=== PATIENT | male | born 1985 | race Caucasian/White ===

== ENCOUNTER 2016-10-12 19:36 | Emergency (ER) | payer OTHER ==
[2016-10-12] MEDS ORDERED: NAPROXEN 250 MG TABLET PO ONE (21:29)
[2016-10-12] MEDS ORDERED: HYDROCODONE/ACETAMINOPHEN 5-325 MG TABLET PO ONE (21:29)
--- NOTE | 2016-10-12 21:37 | ER Document Report ---
ED Medical Screen (RME) - General Stated Complaint: BACK PAIN Mode of Arrival: Ambulatory Information source: Patient Notes: 30 y/o M presents to ED c/o lower back pain over the last 6 days. Reports was lifting toolbox in his garage when he felt a pulling pain to lower back. States pain worse with movement of trunk and legs. States pain is not radiating. Denies extremity weakness, saddle or groin numbness or incontinence. I have greeted and performed a rapid initial assessment of this patient. A comprehensive ED assessment and evaluation of the patient, analysis of test results and completion of the medical decision making process will be conducted by additional ED providers. Physical Exam - Vital signs Vitals: Temp Pulse Resp BP Pulse Ox 98.0 F 85 20 149/93 H 97 10/12/16 21:20 10/12/16 21:20 10/12/16 21:20 10/12/16 21:20 10/12/16 21:20 - General General appearance: Alert In distress: None - Respiratory Respiratory status: No respiratory distress - Neurological Motor strength normal: LUE, RUE, LLE, RLE Course - Vital Signs Vital signs: Temp Pulse Resp BP Pulse Ox 98.0 F 85 20 149/93 H 97 10/12/16 21:20 10/12/16 21:20 10/12/16 21:20 10/12/16 21:20 10/12/16 21:20
[2016-10-13] MEDS ORDERED: KETOROLAC TROMETHAMINE 60 MG/2 ML SDV IM ONE (02:19)
[2016-10-13] MEDS ORDERED: DIAZEPAM 2 MG TABLET PO ONE (02:19)
[2016-10-13] MEDS ORDERED: HYDROCODONE/ACETAMINOPHEN 5-325 MG 6 TAB/DSPK PO PRN (02:19)
--- NOTE | 2016-10-13 02:21 | ER Document Report ---
ED Neck/Back Problem - General Chief Complaint: Back Injury Stated Complaint: BACK PAIN Time seen by provider: 02:20 Mode of Arrival: Ambulatory Information source: Patient TRAVEL OUTSIDE OF THE [place] IN LAST 30 DAYS: No - HPI Patient complains to provider of: Pain, Lower back Onset: Other - 6 days ago Where: Home Onset: Sudden Timing: Still present Quality of pain: Achy Severity: Moderate Pain Level: 4 Context: Lifting Recent injury: Yes Associated symptoms: None Exacerbated by: Movement of trunk Relieved by: Nothing Similar symptoms previously: Yes Recently seen / treated by doctor: No Notes: Patient is a 30-year-old male who presents to the emergency room complaining of low back pain that started 6 days ago after lifting a heavy toy box, she reports a history of chronic low back pain in the past, but typically it does not bother him this much, he denies any numbness or tingling to his feet, no bowel or bladder dysfunction, no saddle anesthesia - Related Data Allergies/Adverse Reactions: No Known Allergies Allergy (Unverified 10/12/16 21:33) Past Medical History - General Information source: Patient - Social History Smoking Status: Current Some Day Smoker Chew tobacco use (# tins/day): No Frequency of alcohol use: Occasional Drug Abuse: None Family History: Reviewed & Not Pertinent Patient has suicidal ideation: No Patient has homicidal ideation: No Renal/ Medical History: Denies: Hx Peritoneal Dialysis Surgical Hx: Negative Review of Systems - Review of Systems Constitutional: No symptoms reported EENT: No symptoms reported Cardiovascular: No symptoms reported Respiratory: No symptoms reported Gastrointestinal: No symptoms reported Genitourinary: No symptoms reported Male Genitourinary: No symptoms reported Musculoskeletal: Back pain Skin: No symptoms reported Hematologic/Lymphatic: No symptoms reported Neurological/Psychological: No symptoms reported -: Yes All other systems reviewed and negative Physical Exam - Vital signs Vitals: Temp Pulse Resp BP Pulse Ox 98.0 F 85 20 149/93 H 97 10/12/16 21:20 10/12/16 21:20 10/12/16 21:20 10/12/16 21:20 10/12/16 21:20 Interpretation: Normal - General General appearance: Appears well, Alert - HEENT Head: Normocephalic, Atraumatic Eyes: Normal Pupils: PERRL - Respiratory Respiratory status: No respiratory distress Chest status: Nontender Breath sounds: Normal Chest palpation: Normal - Cardiovascular Rhythm: Regular Heart sounds: Normal auscultation Murmur: No - Abdominal Inspection: Normal Distension: No distension Bowel sounds: Normal Tenderness: Nontender Organomegaly: No organomegaly - Back Back: Tender - Tenderness to palpate over bilateral SI joints and in the lumbar paraspinal musculature, positive straight leg raise bilaterally - Extremities General upper extremity: Normal inspection, Nontender, Normal color, Normal ROM , Normal temperature General lower extremity: Normal inspection, Nontender, Normal color, Normal ROM , Normal temperature, Normal weight bearing. No: Oliva's sign - Neurological Neuro grossly intact: Yes Cognition: Normal Orientation: AAOx4 Ignacio Coma Scale Eye Opening: Spontaneous Walnut Coma Scale Verbal: Oriented Ignacio Coma Scale Motor: Obeys Commands Walnut Coma Scale Total: 15 Speech: Normal Motor strength normal: LUE, RUE, LLE, RLE Sensory: Normal - Psychological Associated symptoms: Normal affect, Normal mood - Skin Skin Temperature: Warm Skin Moisture: Dry Skin Color: Normal Course - Re-evaluation Re-evalutation: 10/13/16 04:22 Patient symptoms consistent with musculoskeletal low back pain, no saddle anesthesia, no bowel or bladder dysfunction, no concerns for cauda equina syndrome, patient was provided with multiple medications in the emergency room, advised to follow-up with a primary care provider or return if symptoms worsen, patient acknowledges understanding and agreeable with this plan - Vital Signs Vital signs: Temp Pulse Resp BP Pulse Ox 97.9 F 59 L 18 159/93 H 99 10/13/16 02:49 10/13/16 02:49 10/13/16 02:49 10/13/16 02:49 10/13/16 02:49 Discharge - Discharge Clinical Impression: Low back strain Qualifiers: Encounter type: initial encounter Qualified Code(s): S39.012A - Strain of muscle, fascia and tendon of lower back, initial encounter Condition: Stable Disposition: HOME, SELF-CARE Instructions: Ice Packs ([facility]), Low Back Pain ([facility]), Muscle Strain ([facility]), Oral Narcotic Medication ([facility]), Warm Packs ([facility]) Additional Instructions: Follow up with your primary care provider in one to 2 days. Return to the emergency room immediately if symptoms worsen or any additional concerns. Prescriptions: Carisoprodol [Soma 350 Mg Tablet] 350 mg PO TID #30 tablet Oxycodone HCl/Acetaminophen [Percocet 10-325 Mg Tablet] 1 each PO Q6 #30 tablet
[2016-10-13 03:20] VITALS: BP 159/93
== END 2016-10-13 02:49 | disposition home or self-care (01) ==
LOC: ER 19:36
DX: S39.012A Strain of muscle, fascia and tendon of lower back, initial encounter (principal); X50.0XXA Overexertion from strenuous movement or load, initial encounter; Y93.89 Activity, other specified; Y92.009 Unspecified place in unspecified non-institutional (private) residence as the place of occurrence of the external cause; F17.200 Nicotine dependence, unspecified, uncomplicated
CPT/HCPCS: 96372; J3490; J1885